=== PATIENT | male | born 1995 | race Caucasian/White ===

== ENCOUNTER 2016-11-30 03:53 | Emergency (ER) | payer BC ==
[~2016-11-30] VITALS: Ht 190.5 cm; Wt 83.2 kg
[2016-11-30 04:00] VITALS: TEMP 36.6; Ht 190.5 cm; Wt 83.2 kg
--- NOTE | 2016-11-30 04:21 | EMERGENCY ROOM VISIT NOTE ---
History Report prepared by Maritza: Tran Garcia Under the Supervision of: Dr. Shnoda De La Cruz D.O. First contact with patient: 03:55 Chief Complaint: ALCOHOL OVERDOSE Stated Complaint: ALCOHOL OVERDOSE History of Present Illness The patient is a 21 year old male who presents to the Emergency Room for alcohol intoxication occurring prior to arrival. Per police, the patient was found stumbling on [facility]. After stumbling between streets the police got him on [facility]. He did not want to cooperate with the police. He did not identify himself, told false ages and began to argue with the police. Friend's of the patient told the police that he becomes a "jerk" when he gets drunk. This HPI is limited due to the patient's current intoxicated state. Source of History: police History Limited By: intoxication Onset: BIOMEDICAL ENGINEERING TECHNICIAN Position: other (global) Quality: other (alcohol intoxication) Review of Systems See HPI for pertinent positives & negatives. A total of 10 systems reviewed and were otherwise negative. Past Medical & Surgical Medical Problems: (1) Nicotine Dependence, Unspecified, Uncomplicated (2) No pertinent past medical history Surgical Problems: (1) History of hand surgery Family History Patient reports no known family medical history. Social History Smoking Status: Current Some Day Smoker Alcohol Use: occasionally Drug Use: none Marital Status: single Housing Status: lives with family Occupation Status: employed Current/Historical Medications No Active Prescriptions or Reported Meds Allergies Coded Allergies: Penicillins (Verified Allergy, Unknown, UNKNOWN, 11/30/16) Uncoded Allergies: SEAFOOD (Allergy, Unknown, gi problems, 12/26/15) Physical Exam Vital Signs Date Time Temp Pulse Resp B/P (MAP) Pulse Ox O2 Delivery O2 Flow Rate FiO2 11/30/16 04:34 129 18 131/92 95 Room Air 11/30/16 04:02 138 11/30/16 04:00 36.6 131 20 132/90 97 Room Air Physical Exam General: Slurred speech, smells of alcohol, appears intoxicated. HEENT: Head - normocephalic and atraumatic Pupils are 4mm and sluggish reactivity to light. Extraocular eye muscles are intact, and sclera are anicteric. Nose - moist nasal mucosa without discharge. Mouth - moist buccal mucosa. Oropharynx is nonerythematous and there is no tonsillar exudate or edema noted. Neck: Supple; no JVD, nuchal rigidity, cervical lymphadenopathy. Heart: Tachycardic rate and regular rhythm. There is a normal S1 and S2 with no murmurs, clicks, or gallops appreciated. Lungs: Clear to auscultation bilaterally with no wheezes, rales, or rhonchi. Abdomen: Soft, completely nontender, nondistended, with good bowel sounds. There are no palpable pulsatile masses or hepatosplenomegaly. There is no guarding, rigidity, or rebound noted. Back: Abrasions over lower back, nontender to palpation in that area. Extremities: No evidence of cyanosis, clubbing, or edema. There are easily palpable peripheral pulses. Skin: warm and dry with good turgor and no rashes. Medical Decision & Procedures Laboratory Results 11/30/16 04:11 Test 11/30/16 04:11 Anion Gap 8.0 mmol/L (3-11) Est Creatinine Clear Calc Drug Dose 104.9 ml/min Estimated GFR () 89.8 Estimated GFR (Non- 77.5 BUN/Creatinine Ratio 11.0 (10-20) Calcium Level 8.9 mg/dl (8.5-10.1) Ethyl Alcohol mg/dL 283.0 mg/dl (0-3) Laboratory results per my review. ED Course 0356: Past medical records reviewed. The patient was evaluated in room A11. A complete history and physical exam was performed. Labs were drawn as above. The patient was placed in the prone position to avoid aspiration. He was observed on the hog scraper and pulse oximeter. 0408: I spoke with the patient's father on the phone. I made him aware of the situation and offered to have him come picker his son. He said "I am at a loss with this child" and he is not willing to come pick him up because he is sleeping and has to go to work in the morning. 0527: I reevaluated the patient. He is fully awake harassing the security staff. I gave him his phone to call for a ride. He called his dad again. His dad will come picker the patient. 0532: The patient's father has arrived to pick him up. I spoke with the father about his son possibly being an alcoholic. 0537: I then spoke with the son again about the possibility of alcoholism. I recommended that he seek treatment. He felt this was a good idea. Medical Decision The patient is a 21 year old male who presents to the ED for alcohol intoxication. Differential diagnosis includes alcohol overdose, drug intoxication, head injury. Lab findings showed: normal renal function, glucose 142, alcohol 283. This is a 21-year-old male patient presents to the emergency department after consuming too much alcohol. The patient denies any trauma. He has some slight abrasions to his low back but denies any pain associated with the abrasions. His blood alcohol level was significantly elevated but he remained fully awake, alert, and continued to harass the staff. The patient was given his phone and he contact his father who presented here to the ER to pick him up. The patient was fully awake and alert. I've encouraged to follow to watch over him closely and assist him in getting help for his alcohol abuse. Blood Pressure Screening Patient's blood pressure: Normal blood pressure Impression Primary Impression: Alcohol overdose Scribe Attestation The scribe's documentation has been prepared under my direction and personally reviewed by me in its entirety. I confirm that the note above accurately reflects all work, treatment, procedures, and medical decision making performed by me. Departure Information Dispostion Home / Self-Care Prescriptions No Active Prescriptions or Reported Meds Referrals Adryan Moraes D.O. (PCP) Forms HOME CARE DOCUMENTATION FORM, IMPORTANT VISIT INFORMATION Patient Instructions Alcohol Abuse - [facility], Alcohol Intoxication - [facility], Alcoholism, Alcoholism Info Family Friends, ED Overdose Alcohol, My [facility] Additional Instructions Avoid such excessive alcohol use in the future Take plenty of clear liquids to avoid dehydration Use tylenol for headache. Get help if you think you are suffering from alcoholism.
[2016-11-30 05:06] LABS: CALCIUM 8.9 mg/dl (8.5-10.1); CREATININE 1.3 mg/dl (0.60-1.40); POTASSIUM 3.9 mmol/L (3.5-5.1)
[2016-11-30 05:40] VITALS: BP 134/96; PULSE 115; O2SAT 97
== END 2016-11-30 05:41 | disposition home or self-care (01) ==
LOC: EDBD 03:53 → C.EDA 03:55
DX: T51.91XA Toxic effect of unspecified alcohol, accidental (unintentional), initial encounter (principal); F17.210 Nicotine dependence, cigarettes, uncomplicated